=== PATIENT | male | born 1980 | race Caucasian/White ===

== ENCOUNTER 2024-03-01 15:47 | Emergency (ER) | payer OTHER ==
[~2024-03-01] VITALS: Ht 177.8 cm; Wt 83.9 kg
[2024-03-01] MEDS ORDERED: LORAZEPAM 1 MG TABLET ONE (16:42)
[2024-03-01] MEDS: LORAZEPAM 1 MG TABLET PO ONE (16:45)
[2024-03-01 16:54] VITALS: BP 148/94; TEMP 97.9; O2SAT 99
== END 2024-03-01 16:55 ==
LOC: ER 16:06
DX: S91.312A Laceration without foreign body, left foot, initial encounter (principal); S91.311A Laceration without foreign body, right foot, initial encounter; G89.29 Other chronic pain; M54.9 Dorsalgia, unspecified; X58.XXXA Exposure to other specified factors, initial encounter; Y93.89 Activity, other specified; Y92.89 Other specified places as the place of occurrence of the external cause; Y99.8 Other external cause status